=== PATIENT | male | born 1970 | race Caucasian/White ===

== ENCOUNTER → 2018-07-20 | Outpatient (CLI) | payer OTHER ==
--- NOTE | 2018-07-20 14:43 | KCIC ---
Five-view lumbar spine dated 07/20/2018. No comparison available. CLINICAL INDICATION: Pain after injury. FINDINGS: AP, lateral, bilateral oblique and coned-down views of lumbosacral junction obtained. 5 nonrib-bearing vertebral levels. Mild superior endplate compression deformity of L1. Vertebral body and disc heights are otherwise maintained. Sagittal alignment is anatomic. Mild endplate hypertrophic changes throughout. 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 No pars defects on the oblique views. IMPRESSION: 1. Mild superior endplate compression deformity of L1, age indeterminate. 2. Mild multilevel spondylosis. Electronically signed by: Amauri Henderson MD (07/20/2018 2:41 PM) [id number]
== END | disposition home or self-care (01) ==
LOC: KCIC 13:25
PROVIDERS: ATTEND Physician Assistant Medical
DX: M43.8X6 Other specified deforming dorsopathies, lumbar region (principal); M47.816 Spondylosis without myelopathy or radiculopathy, lumbar region; M89.38 Hypertrophy of bone, other site
CPT/HCPCS: 72110

== ENCOUNTER → 2019-08-14 | Outpatient (CLI) | payer OTHER ==
--- NOTE | 2019-08-14 14:00 | KCIC ---
KNEE LEFT 3V, ELBOW BILAT 3V, HAND BILAT 3V, FOOT BILAT 3V History: Reason: JOINT PAIN MULTIPLE SITES, NO KNOWN RECENT INJURY 3 view standing left knee No evidence of acute fracture. No aggressive bone destruction. Joint spaces appear intact. Soft tissues are unremarkable. IMPRESSION: No acute radiographic abnormality. 3 view right foot: Postsurgical changes at the second toe. There is fusion across second IP joint with a screw, and there appears to been resection of the middle phalanx. No evidence of acute fracture or aggressive bone destruction. Joint spaces and alignment appear intact. No significant soft tissue abnormality. IMPRESSION: 1. Postsurgical changes at the right second IP joint. 2. No acute radiographic findings. 3 view left foot: No evidence of acute fracture. No aggressive bone destruction. Joint spaces and alignment are intact. No significant soft tissue abnormality. IMPRESSION: No acute radiographic abnormality. Three-view right elbow: No evidence of acute fracture. No aggressive bone destruction. Joint spaces and alignment are intact. No significant soft tissue abnormality. No evidence of fat pad displacement or joint effusion. IMPRESSION: No acute radiographic abnormality. 3 view left elbow: No evidence of acute fracture. No aggressive bone destruction. No significant soft tissue abnormality. No evidence of fat pad displacement or joint effusion. Joint spaces and alignment appear intact. IMPRESSION: No acute radiographic abnormality. Three-view right hand: Mild deformity of the distal third metacarpal and metacarpal head, could be due to old trauma or fracture. No evidence of acute fracture or aggressive bone destruction. Joint spaces and alignment are intact. No evidence of significant soft tissue swelling. IMPRESSION: 1. Chronic appearing deformity of the third metacarpal head and distal metacarpal, may be due to old trauma. 2. No acute radiographic findings. 3 view left hand: No evidence of acute fracture. No aggressive bone destruction. Joint spaces and alignment are intact. No significant soft tissue abnormality. Minimal degenerative changes at IP joints. IMPRESSION: No acute radiographic findings. Note that if there is persistent pain or symptoms at any area of concern, consider further evaluation with follow-up radiographs or MRI at the area of interest. IMPRESSION: No evidence of acute radiographic abnormality. Electronically signed by: Amauri Santana MD (08/14/2019 1:57 PM) [id number]
== END | disposition home or self-care (01) ==
LOC: KCIC 11:30
PROVIDERS: ATTEND Physician Assistant Medical
DX: M79.672 Pain in left foot (principal); M79.671 Pain in right foot; M25.521 Pain in right elbow; M25.522 Pain in left elbow; M79.641 Pain in right hand; M79.642 Pain in left hand; M25.562 Pain in left knee; M21.831 Other specified acquired deformities of right forearm; M24.674 Ankylosis, right foot
CPT/HCPCS: 73080; 73130; 73562; 73630

== ENCOUNTER → 2019-08-28 | Outpatient (CLI) | payer OTHER ==
--- NOTE | 2019-08-28 09:33 | RAD ---
LUMBAR SPINE WO CONTRAST History: Pain. Technique: Multiplanar, multi sequential MR imaging was performed of the lumbar spine. Comparison: None Findings: Normal vertebral body alignment. Chronic L1 superior endplate compression deformity and Schmorl's node. No acute fracture. Conus terminates at the normal location. No evidence of nerve root clumping. L1-L2: No canal or neuroforaminal narrowing. L2-L3: No canal or neuroforaminal narrowing. L3-L4: Minimal disc bulge. Mild facet arthropathy. No canal or neuroforaminal narrowing. L4-L5: Minimal disc bulge. Mild facet arthropathy. No canal or neuroforaminal narrowing. L5-S1: Minimal disc bulge. Mild facet arthropathy. No canal or neuroforaminal narrowing. Impression: 1. L1 chronic compression deformities and Schmorl's node. 2. Mild lumbar spondylosis. Electronically signed by: Derrell Thomas DO (08/28/2019 9:31 AM) [id number]
== END | disposition home or self-care (01) ==
LOC: MRI 08:43
PROVIDERS: ATTEND Physician Assistant Medical
DX: M47.896 Other spondylosis, lumbar region (principal); M43.8X6 Other specified deforming dorsopathies, lumbar region; M54.42 Lumbago with sciatica, left side; M51.46 Schmorl's nodes, lumbar region; M51.27 Other intervertebral disc displacement, lumbosacral region
CPT/HCPCS: 72148